=== PATIENT | male | born 1930 | race Caucasian/White ===

== ENCOUNTER 2016-08-17 02:15 | Inpatient (IN) ==
[2016-08-17 03:24] LABS: MANUAL DIFF NEEDED? NO
[2016-08-17 03:32] LABS: BASO% 0.1 % (0.0-0.8); EOS# 0.04 X1000 (0.0-0.7); EOS% 0.5 % (0.0-10.0); HEMATOCRIT 33.3 % (42.0-52.0); HEMOGLOBIN 10.4 g/dL (14.0-18.0); IMM GRAN# 0.02 X1000 (0.0-0.04); IMM GRAN% 0.3 % (0.0-0.5); LYMPH% 8.8 % (20.5-51.1); MCH 28.7 PG (27-31); MCHC 31.2 g/dL (33-37); MCV 91.7 FL (81-99); MONO# 0.46 X1000 (0.11-0.59); MONO% 5.8 % (1.7-9.3); MPV 8.9 FL (7.4-10.4); NEUT% 84.5 % (42.2-75.2); PLT 156 X1000 (130-400); RBC 3.63 XMIL (4.7-6.1)
[2016-08-17 03:46] LABS: ALBUMIN 3.5 g/dL (3.5-5.0); CALCIUM 9.1 mg/dL (8.8-10.2); POTASSIUM 4.1 mmol/L (3.5-5.1); TOTAL BILIRUBIN 0.38 mg/dL (0.20-1.00)
[2016-08-17] MEDS ORDERED: ZOFRAN IV ONE (03:56)
[2016-08-17] MEDS ORDERED: DILAUDID IV ONE (04:18)
[2016-08-17 04:22] LABS: INR 1.03; PROTIME 10.8 Seconds (9.2-11.7); PTT 24.9 Seconds (22.0-36.0)
[2016-08-17 04:32] LABS: URINE SOURCE CATH
[2016-08-17 04:36] LABS: BILIRUBIN URINE NEGATIVE (NEGATIVE); BLOOD URINE MODERATE (NEGATIVE); COLOR YELLOW; GLUCOSE URINE NEGATIVE (NEGATIVE); LEUKOCYTES URINE LARGE (NEGATIVE); NITRITE URINE NEGATIVE (NEGATIVE); PH URINE 5.5; PROTEIN URINE 100 mg/dL (NEGATIVE); SP GRAVITY URINE 1.017; TURBIDITY URINE HAZY (CLEAR); UROBILINOGEN URINE NORMAL (NORMAL)
[2016-08-17 04:38] LABS: URINE MICRO REVIEW NEEDED? YES
--- NOTE | 2016-08-17 04:47 | PROVIDER DOCUMENTATION ---
This chart was entered by Latisha Spivey Scribe, acting as scribe for Michi Lima MD. HPI-Musculoskeletal Pain/Inj - GENERAL Chief Complaint: Fall Stated Complaint: FALL RIGHT HIP PAIN Time Seen by Provider: 08/17/16 02:30 Source: patient - HX OF PRESENT ILLNESS-MUSKULOSKELTAL Nature of Presenting Problem: 86 Y/O M presents to ED with Extremity Injury. Pt states that he was sleeping on the edge of the bed, and "rolled off of the bed" severe pain, states there about 4 hours. Pt states he is unsure about how he ended up on the floor. RLE pain. Quality of Pain: reports: aching Severity in ED: moderate, severe Onset/Duration: 4-6 hours ago, this morning Timing: still present Any recent injury?: No Locality of Occurance: Home - FALL INJURY Location of Pain/Injury: reports: lower extremity Pain Radiation: reports: no radiation Reason for Fall: reports: other (rolled off bed) Symptoms prior to fall:: reports: none Loss of Consciousness: brief (seconds) Injury Associated Symptoms: reports: muscle aches, unable to bear weight, weakness, trouble walking. denies: diaphoresis, nausea - HIP/PELVIS PAIN/INJURY Hip Pain Location: reports: hip (R) Pain Radiation: reports: no radiation Context / Method of Injury: reports: fall - LOWER EXTREMITY PAIN/INJURY Context / Method of Injury: reports: fell Associated Symptoms: reports: muscle spasms, tingling in legs/feet - UPPER EXTREMITY PAIN/INJURY Context / Method of Injury: reports: fell Associated Symptoms: reports: muscle spasms Review of Systems - Adult - REVIEW OF SYSTEMS - ADULT Constitutional: denies: chills, fever Eyes: reports: no symptoms reported Ears, Nose, Mouth & Throat: reports: no symptoms reported Cardiovascular: reports: no symptoms reported Respiratory: reports: no symptoms reported Gastrointestinal: reports: no symptoms reported Genitourinary: reports: no symptoms reported Musculoskeletal: reports: joint pain, muscle aches. denies: bone pain, back pain Integumentary: reports: no symptoms reported Neurological: reports: no symptoms reported Psychiatric: reports: no symptoms reported Endocrine: reports: no symptoms reported Hematologic/Lymphatic: reports: no symptoms reported Allergic/Immunologic: reports: no symptoms reported All Other Systems: Reviewed and Negative Past History - Adult - PAST MEDICAL HISTORY-ADULT Review of Records: reports: Old Records Reviewed, Nursing Assessment Review, Medications Reviewed, Social history reviewed & non-contributory. Cardiovascular: reports: blood clots (DVT) Respiratory: reports: COPD, lung disease (blebs), other (pneumonthorax) Genitourinary: reports: prostate cancer (treated and cleared with radiation) - PRIOR SURGERIES/PROCEDURES Surgical/Procedure History: reports: recent surgery (cysto x 2 weeks ago), cholecystectomy, tonsillectomy, hernia repair (R inguinal hernia), other (lung bleb removed) - IMMUNIZATION STATUS Childhood Immunizations: See Nurse Assessment Flu Vaccine: See Nurse Assessment - FAMILY HISTORY Family History: reviewed, not pertinent Physical Exam-Injury Related - Physical Exam-Injury Related General Appearance: alert, no apparent distress Eyes: PERRL/EOMI, pink conjunctivae Head, Ears, Nose, Mouth & Throat: normocephalic/atraumatic, moist mucous membranes, normal ENT inspection, TMs normal, pharynx normal Neck: non-tender, full range of motion, supple, normal inspection Respiratory: chest non-tender, lungs clear, normal breath sounds Cardiovascular: normal peripheral pulses, regular rate, rhythm Abdominal Exam: non tender, soft Lymphatic: no adenopathy Back Exam: normal inspection Extremity: tenderness, other (shortening rotation in right leg) Integumentary: normal color, warm/dry Psych/Mental Status: normal mood/affect, normal thought content, normal thought process, oriented x 3 Progress - PLAN OF CARE/RESULTS Progress/Plan/Lab Results: Vital Signs - 8 hr 08/17/16 02:15 Temperature 98.2 F Pulse Rate 92 H Respiratory Rate 15 Blood Pressure 106/35 O2 Sat by Pulse Oximetry 82 L Laboratory Results - last 24 hr 08/17/16 08/17/16 03:15 03:15 WBC 7.94 RBC 3.63 L Hgb 10.4 L Hct 33.3 L MCV 91.7 MCH 28.7 MCHC 31.2 L RDW Std Deviation 16.6 H Plt Count 156 MPV 8.9 Immature Gran % (Auto) 0.3 Neut % (Auto) 84.5 H Lymph % (Auto) 8.8 L Hock[place] % (Auto) 5.8 Eos % (Auto) 0.5 Baso % (Auto) 0.1 Immature Gran # (Auto) 0.02 Neut # (Auto) 6.71 H Lymph # (Auto) 0.70 L [place] # (Auto) 0.46 Eos # (Auto) 0.04 Baso # (Auto) 0.01 Sodium 137 Potassium 4.1 Chloride 100 Carbon Dioxide 24 L Anion Gap 13 BUN 27 H Creatinine 1.5 H Estimated GFR/1.73 m2 44 BUN/Creatinine Ratio 18 Glucose 117 H Calculated Osmolality 280 Calcium 9.1 Total Bilirubin 0.38 AST 16 ALT 14 Alkaline Phosphatase 65 Total Protein 7.0 Albumin 3.5 Globulin 3.5 Albumin/Globulin Ratio 1.0 Orders Category Date Time Status [place] Cath Insertion ORDERED Care 08/17/16 03:55 Active CHEST-1 VIEW [RAD] Stat Exams 08/17/16 02:54 Taken XRAY PELVIS W/HIP 2-3VW RT [RAD] Stat Exams 08/17/16 02:33 Taken CBC WITH ELECTRONIC DIFF [HEME] Stat Lab 08/17/16 03:15 Completed COMPREHENSIVE METABOLIC PANEL [CHEM] Stat Lab 08/17/16 03:15 Completed PT [PROTIME WITH INR] [COAG] Stat Lab 08/17/16 02:50 Ordered PTT [COAG] Stat Lab 08/17/16 02:50 Ordered UA NIMS W/REFLEX CULT [URINALYSIS] Stat Lab 08/17/16 02:35 Uncollected Ondansetron [Zofran] Med 08/17/16 03:56 Discontinued 4 mg IV NOW ONE EKG [EKG] Stat Ther 08/17/16 02:18 Ordered Result Diagrams: 08/17/16 03:15 08/17/16 03:15 - EKG 1 Time of EKG reading by physician:: 02:14 EKG Read and Signed by:: Michi Lima EKG Interpretation (*Must complete 3 of following elements*): Abnormal Rate: 91 Rhythm: SR w/ frequent and consecutive premature ventricular complexes QRS: RBB (Incomplete) Comments: Abnormal ECG,Left anterior fascicular block, Septal Infract - XRAY 1 XRAY Study: Chest (badly rotated, but obvious fx of humeral neck.) Comparison with other Films: changes noted XRAY Interpretation: Chronic fibrotic lung disease 2 XRAY Study: Pelvis, Hip Impression: Abnormal, See EMR Report XRAY Interpretation: Femoral neck , impacted fx - CHANGE OF SHIFT REPORT (ED Provider) Items Pending: XRAY Results, Physician Consult/Arrival Departure - Departure Date of Disposition Decision: 08/17/16 Time of Disposition Decision: 04:16 DIAGNOSIS: Hip fracture Qualifiers: Encounter type: initial encounter Fracture type: closed Laterality: right Qualified Code(s): S72.001A - Fracture of unspecified part of neck of right femur, initial encounter for closed fracture Disposition: ADMITTED INPATIENT 09 Certified Medical Emergency: Emergent Condition: Fair - Critical Care Note This patient required my direct & personal management of CC.: No This chart was documented by the indicated scribe, (Latisha Spivey Scribe) and accurately reflects the services I performed and decisions made by me, Michi Lima MD, as attested by the provider's signature.
[2016-08-17 04:53] LABS: UR EPITHELIAL CELLS <10 /HPF (<10); URINE BACTERIA NEGATIVE /HPF; URINE CULTURE NEEDED? YES; URINE RBC <10 /HPF (<10); URINE WBC TNTC /HPF (<10)
[2016-08-17 05:30] LABS: URINE CASTS NONE SEEN; URINE CRYSTALS NONE SEEN; URINE SMALL ROUND CELLS NONE SEEN
--- NOTE | 2016-08-17 05:57 | EKG Report ---
Test Performed on : 08/17/2016 02:14:42 AM Test Reason : FALL/HIP FX Blood Pressure : / mmHG Vent. Rate : 091 BPM Atrial Rate : 091 BPM P-R Int : 164 ms QRS Dur : 114 ms QT Int : 390 ms P-R-T Axes : 050 -52 072 degrees QTc Int : 479 ms Sinus rhythm. with frequent and consecutive premature ventricular complexes. Incomplete right bundle branch block Left anterior fascicular block Septal infarct (cited on or before 23-OCT-2011) Abnormal ECG When compared with ECG of 19-JUL-2016 11:45, premature ventricular complexes. are now present Questionable change in initial forces of Anteroseptal leads Unconfirmed Result
[2016-08-17] MEDS ORDERED: NORCO-7.5 PO PRN (06:00)
[2016-08-17] MEDS ORDERED: VENTOLIN HFA INH PRN (06:00)
[2016-08-17] MEDS ORDERED: TYLENOL PO PRN (06:00)
[2016-08-17] MEDS ORDERED: ZOFRAN IV PRN (06:00)
--- NOTE | 2016-08-17 06:11 | HISTORY AND PHYSICAL ---
PRIMARY CARE PHYSICIAN: Nicolas Aldrich MD REASON FOR ADMISSION: Right hip pain and inability to get up. HISTORY: Mr. Hosea Nowak Jr. is an 86-year-old male with past medical history of interstitial lung disease, prostate cancer, bladder cancer, recent DVT, COPD, AAA, coronary artery disease and pernicious anemia. He comes in today complaining of right hip pain after he slipped on an oriental rug near his bed on his way back from the bathroom. He laid there for 4 hours until his got back from outside and noticed that he was lying on the floor. He denies any head trauma or loss of consciousness. The patient was not a very good historian because he was a little confused from the IV Dilaudid given to him a few hours ago. His states other antecedent complaints of urinary retention and chronic mild dyspnea. He had no other complaints. Patient denies any chest pain. No cough. No fever. No chills. REVIEW OF SYSTEMS: Limited because of patient's cognitive function. Twelve system review otherwise was attempted but not detailed due to the aforementioned problems. ALLERGIES: No known allergies. MEDICATIONS: He takes Lasix 20 mg daily, albuterol q.4h p.r.n., Metoprolol 25 mg b.i.d., Xarelto 15 mg b.i.d., olanzapine 2.5 mg daily, Rapaflo 8 mg daily, 1 cap at bedtime, trazodone 50 mg daily and Ambien 5 mg daily. SURGICAL HISTORY: Notable for right inguinal hernia repair. Tonsillectomy. Cholecystectomy. Lung reduction surgery. Bladder tumor resection. FAMILY HISTORY: Notable for prostate cancer. Gynecological cancers. No heart disease. No diabetes in first-degree relatives. SOCIAL HISTORY: He stopped smoking and drinking at the age of 40. He lives with his . No illicit drug use. LABORATORY WORK: White count 7000, hemoglobin and hematocrit 10 and 33, platelets 456,000. There are 84% neutrophils, BUN is 27, creatinine 1.5 which is unchanged from recent baseline in July. Glucose 117. PTT normal. Urinalysis shows too numerous to count white cells and moderate blood. No bacteria seen. Chest film increased vascular markings versus some superimposed chronic lung changes more in the right compared to the left. The hip x-ray shows a right impacted femoral foot neck fracture. EKG was done and as noted and reviewed by me. PHYSICAL EXAMINATION: VITAL SIGNS: Blood pressure 106/35, heart rate 92, respirations 16, temperature is 98.2 degrees and 82% on room air. He is a frail emaciated elderly man who is lying comfortably in bed not in acute distress. He is alert and oriented to person, place, but not to time. HEENT: Head is normocephalic and atraumatic with bitemporal wasting. Eyes are slightly sunken in. He is anicteric but mildly pale. ENT exam is grossly normal. NECK: Supple. No JVD or carotid bruit. No thyromegaly. CHEST: He has slightly barrel-shaped chest with decreased entry in both lung montejo but otherwise clear to auscultation. CARDIOVASCULAR: First and heart sounds heard. No gallops, murmurs or rubs. Rhythm is regular. ABDOMEN: Scaphoid soft. No tenderness. No masses or organomegaly noted. Bowel sounds are hypoactive. Rectal exam is deferred. EXTREMITIES: Patient has good pulses distally in all his extremities and good volume. No edema clubbing or peripheral cyanosis. NEUROLOGICAL: No gross focal deficits appreciated. SKIN: Intact. No breakdown or lesions. MUSCULAR: Slightly shorter right lower extremity with slight external rotation. No bruising over the hip joints. No crepitus felt. ASSESSMENT: 1. Right impacted hip fracture. 2. COPD. 3. Interstitial lung disease, quit radiation. 4. Bladder cancer. 5. Prostate cancer. 6. Recent DVT. 7. CAD. PLAN: Orthopedist, Dr. Taylor will be notified about patient. Treat patient symptomatically for his pain and any respiratory complaints accordingly. We will discontinue the Xarelto and surgery may need to be delayed for another 24-36 hours because of this. Also, if Xarelto is going to be continued at discharge, I will recommend patient's dose be decreased to 20 mg being that he has been on this since 07/19. It is probably likely that he will need to be on lifelong anticoagulation due to the fact that he has two ongoing cancers. Dr. Aldrich will be notified this morning by my colleagues to assume care. Urinalysis shows some degree of pyuria. Blood cultures need to be followed to determine if he truly has an infection. We will give a 1 time dose of Rocephin in the interim pending the culture reports. cc: MD Keenan Greenwood MD MTDD
--- NOTE | 2016-08-17 07:30 | Diag Imaging Result Doc PS360 ---
EXAM: XRAY PELVIS W/HIP 2-3VW RT - 08/17/2016 HISTORY: fall TECHNIQUE: Portable right hip and pelvis three views COMPARISON: None. FINDINGS: There is a fracture of the right femoral neck with foreshortening. There is no other fracture or dislocation identified. IMPRESSION: Fracture of right femoral neck. Electronically signed by Semaj Patel 08/17/2016 7:28 AM
--- NOTE | 2016-08-17 07:32 | Diag Imaging Result Doc PS360 ---
EXAM: CHEST-1 VIEW - 08/17/2016 HISTORY: fall r hip fx TECHNIQUE: Portable supine chest 0300 COMPARISON: 07/19/2016 FINDINGS: Heart size is normal. There are apparent emphysematous changes are most prominent at the right apex. There is bilateral pulmonary scarring, is prominent at the mid and lower lung on the right. There are no acute changes identified. IMPRESSION: Emphysematous changes and scarring. No acute changes. Electronically signed by Semaj Patel 08/17/2016 7:30 AM
[2016-08-17] MEDS: NS 1,000 ML IV SCH ×5 (08:05→23:42)
[2016-08-17] MEDS: MORPHINE IV PRN ×3 (08:05→23:42)
[2016-08-17] MEDS: ROCEPHIN 1 GM/NS 1 GM/50 ML IVPB IV SCH ×3 (08:05→10:54)
--- NOTE | 2016-08-17 08:43 | EKG Report ---
Test Performed on : 08/17/2016 08:22:52 AM Test Reason : Fast Heart Rate Blood Pressure : / mmHG Vent. Rate : 132 BPM Atrial Rate : 153 BPM P-R Int : 130 ms QRS Dur : 110 ms QT Int : 348 ms P-R-T Axes : -52 -63 072 degrees QTc Int : 515 ms Undetermined rhythm Left anterior fascicular block Septal infarct (cited on or before 23-OCT-2011) Abnormal ECG When compared with ECG of 17-AUG-2016 02:14, Current undetermined rhythm precludes rhythm comparison, needs review Questionable change in initial forces of Septal leads Confirmed by James CASTANEDA, Mac Chen ([id number]) on 08/17/2016 6:23:14 PM
[2016-08-17] MEDS ORDERED: ZYPREXA PO SCH ×2 (09:00→10:56)
[2016-08-17] MEDS ORDERED: DESYREL PO SCH ×2 (09:00→21:00)
--- NOTE | 2016-08-17 10:31 | EKG Report ---
Test Performed on : 08/17/2016 09:56:17 AM Test Reason : tachycardia Blood Pressure : / mmHG Vent. Rate : 137 BPM Atrial Rate : 137 BPM P-R Int : 136 ms QRS Dur : 116 ms QT Int : 326 ms P-R-T Axes : 042 -67 073 degrees QTc Int : 492 ms Sinus tachycardia. with occasional premature ventricular complexes. Incomplete right bundle branch block Left anterior fascicular block Cannot rule out Anteroseptal infarct (cited on or before 23-OCT-2011) Abnormal ECG When compared with ECG of 17-AUG-2016 08:22, (Unconfirmed) Previous ECG has undetermined rhythm, needs review Confirmed by James CASTANEDA, Mac Chen ([id number]) on 08/17/2016 6:23:28 PM
[2016-08-17] MEDS: LOPRESSOR PO SCH ×2 (10:52→20:41)
[2016-08-17] MEDS ORDERED: NS 250 ML IV ONE (10:59)
[2016-08-17] MEDS: RAPAFLO PO SCH (11:06)
[2016-08-17] MEDS: XOPENEX NEB INH SCH ×4 (11:41→22:52)
--- NOTE | 2016-08-17 12:00 | Diag Imaging Result Doc PS360 ---
EXAM: CHEST-PORTABLE - 08/17/2016 HISTORY: sob TECHNIQUE: Portable chest 1000 COMPARISON: Previous exam of same morning at 0300 FINDINGS: Heart size is normal. There is tortuosity of the thoracic aorta similar to the previous exam. There are COPD changes and scarring, is prominent on the right. There is increased prominence of infrahilar markings on the left. The possibility of infiltrative this location cannot be excluded. There is no substantial pleural effusion or pneumothorax identified. IMPRESSION: COPD changes and scarring. Increased prominence of left infrahilar markings. The possibility of infiltrate/pneumonia at this location cannot be excluded. Electronically signed by Semaj Patel 08/17/2016 11:57 AM
--- NOTE | 2016-08-17 13:31 | CONSULTATION ---
DATE OF CONSULTATION: 08/17/2016 IMPRESSIONS: 1. Sinus tachycardia with frequent premature supraventricular complexes and associated aberrancy. 2. Status post fall and right hip fracture. Surgical repair being considered. 3. Dementia. 4. Atherosclerotic coronary artery disease with previous coronary angiography in 2006 showing mild coronary atherosclerosis and normal left ventricular systolic function. The patient has continued without angina. 5. Peripheral vascular disease. 6. Recent deep vein thrombosis, treated with Xarelto. Last dose of Xarelto not clear. RECOMMENDATIONS: 1. Intravenous hydration. His tachycardia is possibly in part related to intravascular volume depletion, as patient has probably had limited oral intake in the last 24 hours, given his history. 2. Repeat echocardiography. 3. Determine last dose of Xarelto to guide timing of surgery. 4. Patient is acceptable risk from a cardiac standpoint for repair of hip fracture. However, timing of surgery will be dictated by last dose of Xarelto. HISTORY OF PRESENT ILLNESS: This 86-year-old white male with past history of atherosclerotic coronary artery disease, COPD, dementia, prostate cancer, bladder cancer, recent DVT, and hyperlipidemia was admitted from Dr. Aldrich's office after he was brought there complaining of right hip pain following a recent fall. He apparently had slipped on an oriental rug near his bed on the way back from the bathroom. He has little recall of recent events. He reportedly laid there for about 4 hours until his returned and found him lying on the floor. He is not aware of passing out. He can recall very little details of what has happened in the last few days. He denies any chest pain or shortness of breath. PAST MEDICAL HISTORY: 1. Atherosclerotic coronary artery disease with previous coronary angiography in 2006 showing mild coronary atherosclerosis and normal left ventricular systolic function. Patient continues without angina. 2. Hyperlipidemia. 3. Prostate cancer. 4. Chronic obstructive pulmonary disease. 5. Peripheral vascular disease, history of abdominal aortic aneurysm. 6. Dementia. PAST SURGICAL HISTORY: 1. Right inguinal hernia repair. 2. Tonsillectomy. 3. Cholecystectomy. 4. Lung reduction surgery. 5. Bladder tumor resection. ALLERGIES: He has no known drug allergies. MEDICATIONS PRIOR TO ADMISSION: As listed. SOCIAL HISTORY: He quit smoking and drinking at the age of 40. Lives with his . FAMILY HISTORY: Negative for premature coronary artery disease. REVIEW OF SYSTEMS: Pulmonary: Negative. Gastrointestinal: Negative. Constitutional: Negative. The remainder of the review of systems was negative, with 14 total systems reviewed. PHYSICAL EXAMINATION: General: This is an elderly white male in no distress. Vital Signs: As recorded are stable. Heart rate now, after intravenous fluids, 91 beats per minute with ECG monitor showing sinus rhythm with occasional to moderate ventricular ectopy. HEENT: Atraumatic, normocephalic. Pupils equal, round, reactive to light. Extraocular muscles appear intact. Mucous membranes are moist. Neck: Supple, without jugular venous distention. There are no carotid bruits. Chest: Clear to auscultation. Cardiac: Regular rate and rhythm, without appreciable murmur or gallop. Abdomen: Soft, nontender. Bowel sounds normal. Extremities: Without edema. Neurologic: Examination reveals him to be alert and responsive. His memory is quite poor. Speech is fluent. He moves all 4 extremities equally well. Skin: Warm and dry. Psychiatric: Was note to be appropriate. ELECTROCARDIOGRAM: ECG shows sinus tachycardia with frequent premature supraventricular complexes, an occasional premature ventricular complex, incomplete right bundle branch block, and left anterior fascicular block. cc: MD Nicolas Gunn MD
[2016-08-17 15:08] LABS: HEMATOCRIT 34.7 % (42.0-52.0); HEMOGLOBIN 10.8 g/dL (14.0-18.0); MCH 28.7 PG (27-31); MCHC 31.1 g/dL (33-37); MCV 92.3 FL (81-99); MPV 9.4 FL (7.4-10.4); RBC 3.76 XMIL (4.7-6.1)
[2016-08-17 15:27] LABS: ALBUMIN 3.4 g/dL (3.5-5.0); CALCIUM 8.9 mg/dL (8.8-10.2); POTASSIUM 4.4 mmol/L (3.5-5.1); TOTAL BILIRUBIN 0.36 mg/dL (0.20-1.00); TOTAL PROTEIN 6.7 g/dL (6.3-8.3)
--- NOTE | 2016-08-17 15:46 | CONSULTATION ---
DATE OF CONSULTATION: 08/17/2016 FAMILY PHYSICIAN: Dr. Nicolas Aldrich. HISTORY OF PRESENT ILLNESS: This is an 86-year-old white male with a past history of atherosclerotic coronary artery disease, COPD, dementia, prostate cancer, bladder cancer, recent DVT, and hyperlipidemia, who was admitted from Dr. Aldrich's office complaining of right hip pain after he slipped at his home and fell. Apparently, he did lay there for 4 hours or more until someone found him. He was admitted to the hospital and was complaining of significant hip pain. An x-ray does show a right impacted hip fracture. We have been asked to see him in relation to the hip fracture. OBJECTIVE: On physical examination of the right leg, there is no obvious bruising or edema. He has excellent pedal pulses, good color. Capillary refill is less than 2 seconds. He does have good sensation all the way down the leg. He complains of no pain anywhere else in the leg except for the right hip. No abrasions or lacerations. He is in external rotation. He can wiggle his toes and move the leg, but does elicit pain in his right hip. Imaging: Hip and pelvis xray shows fracture of the R femoral neck IMPRESSION: Right displaced femoral neck fracture. PLAN: Discussed treatment options with patient and family. His Xarelto has already been discontinued. His last known dose is unknown, related to some disorientation on his part. He did apparently have some supraventricular tachycardia during the day today, but Cardiology has cleared him for surgery 24 hours after we know he has been off the Xarelto. As of now, we will plan to do a right hemiarthroplasty tomorrow. The risks and benefits of surgery were explained to the patient, including the risk of anesthesia, , bleeding, infection, damage to tendons, ligaments , nerves, blood vessels, possibility of bleeding, blood clots, and other imponderables were discussed with the patient and his family, and all wish to proceed with operative management at this time. Dictated by SON Metzger for Michi Bang MD cc: SON Metzger MD Russell T. Barr, MD [facility]ITALAmos
--- NOTE | 2016-08-17 19:52 | PROGRESS NOTE ---
DATE: 08/17/2016 SUBJECTIVE: The patient was admitted early this morning with a right femoral neck fracture. The patient was provided adequate pain medications. I evaluated the patient at approximately 7:30 this morning. At that time, patient was noted to be significantly altered. He was exhibiting paranoid behavior. He would not allow nurses to assist in his care. Upon my evaluation, patient was noted to be tachypneic. His oxygen saturations were noted to be in the low 70s. His heart rate reached as high as 160. An EKG was performed which showed with undetermined rhythm. This appeared to be either a sinus tachycardia or possible supraventricular tachycardia with frequent ectopy. With oxygen supplementation, patient's overall condition showed improvement. I transferred patient to the CICU. A dose of metoprolol was provided. Dr. Ugarte with Cardiology was consulted. Throughout the day, patient's overall condition has improved considerably. The patient's mental status has returned to his baseline of mild dementia. Patient' s heart rate has decreased into the 80s. He has been provided supplemental oxygen therapy with adequate saturations. He denies fevers, chills, nausea, vomiting, or chest discomfort. He is prepared for surgical intervention in the a.m. OBJECTIVE: Vital signs: Temperature maximum 98.8 degrees, heart rate, 81 to 160. Respirations 16-24, blood pressure 95-116/45-78. General: Elderly. No acute distress. Cardiovascular: Regular rate and rhythm. No significant murmurs, rubs, or gallops. Pulmonary: Clear to auscultation bilaterally. Distant breath sounds. Abdomen: Soft, nontender, nondistended. Positive bowel sounds. Extremities: No significant clubbing, cyanosis, or edema. Dermatologic: Evaluation reveals no evidence of rash. LABORATORY DATA: White blood cell count 8.36, hemoglobin 10.8, hematocrit 34.7 , platelet count 159,000. Sodium 138, potassium 4.4, chloride 100, bicarb 24, BUN 28, creatinine 1.4. Glucose 106, calcium 8.9, total bilirubin 0.36, total protein 6.7, albumin 3.4, alkaline phosphatase 62, AST 18, ALT 15, CK total 80, troponin 0.025. IMAGING: Chest x-ray reveals COPD changes and scarring. Increased prominence of the left ventricle infrahilar markings. The possibility of infiltrates/pneumonia at this location cannot be excluded. ASSESSMENT AND PLAN: 1. Respiratory failure-upon my initial evaluation, patient was noted to be hypoxic with oxygen saturations in the low 70s. As above, patient was demonstrating significant systemic symptoms associated. With oxygen supplementation, continuing antibiotics and bronchodilators, patient's overall condition has improved. We will continue Rocephin and add azithromycin for the possibility of an infiltrative process as noted. We will remain aware that a pulmonary thromboembolism could present in this fashion, especially in the setting of trauma and recent deep venous thrombosis. Because of his stabilization of oxygenation, mild renal insufficiency, and inability to anticoagulate in setting of current fracture and acute need for surgery, I do not feel aggressive evaluation at this point is necessary. We will continue supplemental oxygen. We will plan to resume Xarelto once surgery is complete. 2. Alteration of mental status-I suspect this is secondary to underlying hypoxia and narcotic pain intervention. Over the course of the day, patient's condition has returned to baseline. We will follow this. 3. Tachycardia-as above, at this point, I am unsure whether this represented supraventricular tachycardia, regular a-fib/a-flutter, or sinus tachycardia. Regardless, with treatment of IV fluids, beta blockers, and supplemental oxygen, his condition has stabilized. I appreciate Dr. Ugarte's consultations. 4. Possible pneumonia-we will continue Rocephin and added azithromycin therapy. We will encourage incentive spirometry. We will continue Xopenex. 5. Urinary tract infection-we will continue patient on Rocephin therapy. Will follow cultures. 6. Right hip fracture-we will plan surgical intervention in the a.m. I appreciated Orthopedic consultation. 7. Recent deep venous thrombosis-as above, patient was on Xarelto upon admission. We will hold Xarelto for now and plan to resume this as soon as possible after surgical intervention. 8. History of bladder cancer-aware. 9. Disposition-at this point, patient continues to require half-way care in a hospital setting. The patient likely will require rehabilitation at discharge. cc: MD Nicolas Draper MD MTDD
[2016-08-17] MEDS: ZYPREXA PO SCH (20:45)
[2016-08-17] MEDS: SPIRIVA INH SCH (22:52)
[2016-08-18] MEDS: NS 1,000 ML IV SCH ×3 (02:02→16:48)
[2016-08-18] MEDS: XOPENEX NEB INH SCH ×6 (02:33→23:02)
[2016-08-18] MEDS: ROCEPHIN 1 GM/NS 1 GM/50 ML IVPB IV SCH (05:06)
[2016-08-18 05:20] LABS: MANUAL DIFF NEEDED? NO
[2016-08-18 05:28] LABS: BASO% 0.3 % (0.0-0.8); EOS# 0.03 X1000 (0.0-0.7); EOS% 0.5 % (0.0-10.0); HEMATOCRIT 32.6 % (42.0-52.0); HEMOGLOBIN 10.1 g/dL (14.0-18.0); LYMPH# 0.65 X1000 (1.2-3.4); LYMPH% 10.5 % (20.5-51.1); MCH 28.4 PG (27-31); MCV 91.6 FL (81-99); MONO# 0.52 X1000 (0.11-0.59); MONO% 8.4 % (1.7-9.3); MPV 9.4 FL (7.4-10.4); NEUT% 80.3 % (42.2-75.2); PLT 138 X1000 (130-400); RBC 3.56 XMIL (4.7-6.1)
[2016-08-18 05:45] LABS: CALCIUM 8.9 mg/dL (8.8-10.2); POTASSIUM 4.5 mmol/L (3.5-5.1)
[2016-08-18] MEDS: LOPRESSOR PO SCH ×3 (07:35→20:56)
[2016-08-18] MEDS ORDERED: NEOSPORIN G.U. IRRIGANT ONE (08:31)
[2016-08-18] MEDS ORDERED: LASIX PO SCH (09:00)
[2016-08-18] MEDS ORDERED: DIPRIVAN 1% ONE (10:42)
--- NOTE | 2016-08-18 10:51 | OPERATIVE NOTE ---
PROCEDURE DATE: 08/18/2016 PREOPERATIVE DIAGNOSIS: Right displaced femoral neck fracture. POSTOPERATIVE DIAGNOSIS: Right displaced femoral neck fracture. PROCEDURE: Hemiarthroplasty of the right hip with a Depuy Corail size 15 set cementless stem 28 + 1.5. Femoral head with a 28 x 55 bipolar head. SURGEON: Michi Bang MD. ASSISTANTS: SON Metzger. SECOND HELP DESK CONSULTANT: Ward Alvarez RN. ANESTHESIA: General. IV FLUIDS: 1000 mL lactated Ringer's. ESTIMATED BLOOD LOSS: 100 mL. COMPLICATIONS: None. INDICATION: The patient is an 86-year-old male with multiple medical problems, who is 2 days status post fall injuring his right hip. He developed immediate pain and discomfort and presented to the emergency room. X-rays revealed a displaced femoral neck fracture. After obtaining preoperative medical clearance, recommendation to proceed with hemiarthroplasty was offered. Risks and benefits of surgery were explained, including the risks of anesthesia , , bleeding, infection, failure to relieve pain, postop stiffness, nerve injury, blood clots , and other imponderables. All questions were answered. The patient and family wished to proceed with surgery. DETAILS OF OPERATION: The patient was taken to the operating room and placed supine on the operating table. Once adequate anesthesia was obtained, the patient was placed in a left lateral decubitus position on a low bag with an axillary roll. The right hip was subsequently prepped and draped in usual sterile fashion. A standard lateral incision made with a skin knife. Hemostasis was obtained with electrocautery. The fascia homa and gluteus che were incised in line with the incision. A Charnley retractor was then placed. The piriformis tendon was then identified and a stay suture was placed. Piriformis tendon along with the short external rotators were then elevated off of the insertion site and retracted posteriorly. A T- shaped capsulotomy was then performed. Stay suture was placed in the capsule. The humeral head was then removed with a corkscrew. The fracture debris was removed with a rongeur. A box cutting guide was then placed in the intramedullary canal of the femur. This is followed by a starting deckhand clam dredge. Sequential broaching was then performed with a size 15 and had a good fit. Calcar planing was conducted in the proximal femur. A trial head and neck size was then placed in a 28 + 1.5 femoral head with a 28 x 55 bipolar head with a high offset. Had excellent stability. The hip was dislocated and the trial stems were removed. Copious irrigation was then performed with antibiotic pulsatile lavage. A size 15 high offset Corail cementless femoral stem was impacted into position and had good fit. The 28+ 1.5 femoral head with a 28 x 55 bipolar head was impacted on the stem. The hip was then reduced, carried through range of motion and had excellent stability and good range of motion. The wound was copiously at antibiotic pulsatile lavage. Number 1 Vicryl was used to repair the posterior capsule as well as piriformis tendon. Irrigation was conducted once again. A Charnley retractor was then removed. Number 1 Vicryl was then used to repair the fascia homa and gluteus che in a running fashion. 2-0 Vicryl was then placed followed by skin jama. Adaptic, sterile 4x4s, ABD pad, and tape applied to the right hip followed by abduction pillow. Patient tolerated the procedure well and was transferred to the recovery room in stable condition. cc: MD Nicolas Cannon MD MTDD
[2016-08-18] MEDS ORDERED: ATROPINE ONE (11:00)
[2016-08-18] MEDS ORDERED: ZOFRAN ONE (11:00)
[2016-08-18] MEDS ORDERED: XYLOCAINE-MPF 2% ONE (11:01)
[2016-08-18] MEDS ORDERED: NS 250 ML ONE (11:01)
[2016-08-18] MEDS ORDERED: LR 1,000 ML ONE (11:01)
[2016-08-18] MEDS ORDERED: NEO-SYNEPHRINE ONE (11:01)
[2016-08-18] MEDS ORDERED: MORPHINE IV PRN (11:18)
[2016-08-18] MEDS ORDERED: MILK OF MAGNESIA PO PRN (11:18)
[2016-08-18] MEDS: MORPHINE ONE ×2 (11:18→13:08)
[2016-08-18] MEDS ORDERED: ZOFRAN IV PRN (11:18)
--- NOTE | 2016-08-18 12:10 | Diag Imaging Result Doc PS360 ---
EXAM: HIP 1 VIEW RIGHT HISTORY: post op bipolar hip TECHNIQUE: Portable AP only COMMENT: There is a bipolar hip prosthesis. There appears to be appropriate alignment. IMPRESSION: Postsurgical changes. Electronically signed by Rick Mitchell 08/18/2016 12:07 PM
[2016-08-18] MEDS: RAPAFLO PO SCH (13:06)
[2016-08-18] MEDS: ZITHROMAX 500 MG/NS 500 MG/250 ML IVPB IV SCH (13:06)
[2016-08-18] MEDS: TYLENOL PO SCH ×2 (13:10→20:55)
--- NOTE | 2016-08-18 13:46 | PROGRESS NOTE ---
DATE: 08/18/2016 SUBJECTIVE: Patient underwent repair of hip fracture today. He has no chest symptoms postoperatively. Reportedly his confusion seemed to improve yesterday evening but he is now once again having difficulty with memory postoperatively. This apparently is not unusual for him. OBJECTIVE: Vital Signs: Blood pressure 97/50, heart rate 89 and regular. ECG monitor showing sinus rhythm. There is no significant jugular venous distention. Chest: Clear to auscultation. Cardiac Exam: Reveals a regular rate and rhythm without appreciable murmur or gallop. Echocardiogram report is pending. IMPRESSION: 1. Recent sinus tachycardia on presentation probably related to intravenous volume depletion and pain. This seems to have improved with volume replacement. 2. Atherosclerotic coronary disease with previous coronary angiography in 2006 showing mild coronary atherosclerosis. Normal left ventricular systolic function. Patient continues without angina. 3. Dementia. 4. Status post fall and right hip fracture. Patient is status post surgical repair today. 5. Recent deep venous thrombosis treated with Xarelto. 6. Peripheral vascular disease. RECOMMENDATIONS: 1. Continue gentle intravenous hydration. 2. Followup echocardiography. 3. Resume anticoagulation when okay from an orthopedic surgery standpoint. cc: MD Nicolas Gunn MD
[2016-08-18] MEDS ORDERED: NS 500 ML IV ONE (14:30)
--- NOTE | 2016-08-18 14:56 | PROGRESS NOTE ---
DATE: 08/18/2016 SUBJECTIVE: Initially came to round early this morning, but patient had been taken for surgical intervention. The patient tolerated his right hip surgical intervention by Dr. Bang without complication. This afternoon, patient is doing reasonably well. His daughters are at bedside. Postoperatively, patient has had some modest hypotension, likely secondary to IV morphine. In addition, he has had some increasing confusion. There has been no evidence of fevers, chills, nausea, vomiting, or chest discomfort. He transiently required increasing oxygen to maintain adequate saturation. OBJECTIVE: Vital signs: Temperature maximum is 98.4 degrees, heart rate 84 to 106, respirations 21 to 25, blood pressure 97-114/50-64. General: Elderly, no acute distress. Cardiovascular: Regular rate and rhythm. No significant murmurs, rubs, or gallops. Pulmonary: Clear to auscultation anteriorly. Abdomen: Soft, nontender, nondistended. Positive bowel sounds. Extremities: Moves left lower extremity well. Right lower extremity movement is limited. No significant clubbing, cyanosis or edema. Dermatologic: Evaluation reveals no evidence of rash. LABORATORY DATA: White blood cell count 6.20, hemoglobin 10.1, hematocrit 32.6 , platelet count 138,000. Sodium 138, potassium 4.5, chloride 104, bicarb 21, BUN 31, creatinine 1.5, glucose 108. ASSESSMENT AND PLAN: 1. Respiratory failure-upon my initial evaluation yesterday, patient was noted to be profoundly hypoxic. With oxygen therapy and treatment for possible underlying pneumonia , patient's overall condition has improved. We will treat pneumonia as described below. 2. Possible infiltrate/pneumonia in the left infrahilar region-this was noted per chest x-ray. Patient currently is being treated with Xopenex, oxygen supplementation, Rocephin, and azithromycin. We will continue to encourage incentive spirometry and aspiration precautions. 3. Alteration of mental status-the patient was diagnosed yesterday, but achieved improvement with oxygen supplementation. Unfortunately, postoperatively, patient has resumed a confused state. This likely is secondary to narcotic pain medication intervention. We will follow this for now. 4. Tachycardia-yesterday, patient's electrocardiogram suggested either a supraventricular tachycardia, regular atrial fibrillation versus atrial flutter, or a sinus tachycardia with frequent ectopy. With treatment of his underlying pulmonary compromise, his condition has stabilized. We will continue beta blockers, supplemental oxygen, IV fluids, and monitoring patient on telemetry. Echocardiogram is pending. We will follow with Dr. Ugarte. 5. Urinary tract infection-we will continue patient on Rocephin therapy. 6. Right hip fracture-as above, patient is status post surgical intervention by Dr. Bang. We will defer physical therapy recommendations to his discretion. 7. Recent deep venous thrombosis-patient was on Xarelto upon admission. His Xarelto has been held for surgery. We will defer resuming anticoagulation to Dr. Bang. Will encourage starting as soon as possible. 8. History of bladder cancer-we will remain aware. 9. Postoperative hypotension-we will provide a 1 time normal saline bolus of 500 mL. We will continue IV fluids as scheduled. We will follow this. 10. Disposition-at this point, the patient continues to require [facility] care in a hospital setting. We will plan discharge home once appropriate. cc: MD Nicolas Draper MD MTDD
[2016-08-18] MEDS: OXY IR PO PRN (16:48)
[2016-08-18] MEDS: COLACE PO SCH (20:55)
[2016-08-18] MEDS: ZYPREXA PO SCH (20:55)
[2016-08-18] MEDS: AMBIEN PO PRN (22:36)
[2016-08-19] MEDS: OXY IR PO PRN ×4 (02:35→17:52)
[2016-08-19] MEDS: TYLENOL PO SCH ×3 (02:35→21:15)
[2016-08-19] MEDS: NS 1,000 ML IV SCH (02:38)
[2016-08-19] MEDS: XOPENEX NEB INH SCH ×6 (03:05→23:14)
[2016-08-19 05:08] LABS: MANUAL DIFF NEEDED? NO
[2016-08-19] MEDS: XARELTO PO SCH (05:39)
[2016-08-19] MEDS: ROCEPHIN 1 GM/NS 1 GM/50 ML IVPB IV SCH (05:39)
[2016-08-19 05:42] LABS: BASO% 0.2 % (0.0-0.8); EOS# 0.05 X1000 (0.0-0.7); HEMATOCRIT 24.2 % (42.0-52.0); HEMOGLOBIN 7.3 g/dL (14.0-18.0); LYMPH# 0.69 X1000 (1.2-3.4); LYMPH% 13.6 % (20.5-51.1); MCH 28.1 PG (27-31); MCHC 30.2 g/dL (33-37); MCV 93.1 FL (81-99); MONO# 0.54 X1000 (0.11-0.59); MONO% 10.7 % (1.7-9.3); MPV 9.5 FL (7.4-10.4); NEUT% 74.5 % (42.2-75.2); PLT 111 X1000 (130-400)
[2016-08-19 05:50] LABS: ALBUMIN 2.5 g/dL (3.5-5.0); CALCIUM 7.9 mg/dL (8.8-10.2); POTASSIUM 4.2 mmol/L (3.5-5.1); TOTAL BILIRUBIN 0.25 mg/dL (0.20-1.00); TOTAL PROTEIN 5.1 g/dL (6.3-8.3)
--- NOTE | 2016-08-19 07:42 | PROGRESS NOTE ---
DATE: 08/19/2016 SUBJECTIVE: The patient is a pleasant 86-year-old male who is one day status post right bipolar hemiarthroplasty. The patient is currently resting comfortably this morning and has no significant complaints. OBJECTIVE: On physical examination of the patient's right lower extremity, his dressing is intact. His calf is soft. He has active dorsiflexion and plantar flexion. His hemoglobin is 7.3, hematocrit is 24.2. IMPRESSION: 1. Postoperative day #1 status post right bipolar hemiarthroplasty. 2. Acute blood loss anemia. PLAN: At this point, Physical Therapy has been consulted. The patient may be weightbearing as tolerated right lower extremity. We will mobilize once medically stable. cc: MD Nicolas Cannon MD
[2016-08-19] MEDS: ZITHROMAX 500 MG/NS 500 MG/250 ML IVPB IV SCH (08:31)
[2016-08-19] MEDS: RAPAFLO PO SCH (08:32)
[2016-08-19] MEDS: FERROUS SULFATE PO SCH (08:35)
[2016-08-19] MEDS: LOPRESSOR PO SCH ×2 (09:07→21:07)
[2016-08-19] MEDS: NS NEB INH SCH ×2 (11:52→15:40)
[2016-08-19 14:50] LABS: HEMATOCRIT 30.4 % (42.0-52.0); HEMOGLOBIN 9.3 g/dL (14.0-18.0)
--- NOTE | 2016-08-19 19:35 | PROGRESS NOTE ---
DATE: 08/19/2016 SUBJECTIVE: Patient continues without chest discomfort or dyspnea. He is currently on nasal cannula oxygen. OBJECTIVE: Vital Signs: Blood pressure 102/56, heart rate 80 and regular. Oxygen saturation 100% on nasal cannula oxygen at 2 L. Neck: Jugular venous pressure appears to be normal. Chest: Clear to auscultation. Cardiac Exam: Reveals a regular rate and rhythm without appreciable murmur or gallop. No evidence of edema. IMPRESSIONS: 1. Recent sinus tachycardia on presentation, probably related to intravascular volume depletion and pain, as well as mild anemia. This seems to have improved. 2. Atherosclerotic coronary disease with history of previous coronary angiography in 2006 showing mild coronary atherosclerosis. Patient demonstrated normal left ventricular systolic function at that time. He continues without angina. 3. Some tendency for dementia. He is presently quite lucid and it appears that his cognitive function is significantly affected by narcotic analgesics. 4. Status post fall and right hip fracture. Patient is status post surgical repair. 5. History of deep vein thrombosis. Treated with Xarelto. 6. Peripheral vascular disease. RECOMMENDATIONS: 1. Continue supportive care. 2. Resume anticoagulation when okay from an orthopedic surgery standpoint. 3. Given apparent clinical stability from a cardiac standpoint, we will see further on an as needed basis. cc: MD Nicolas Gunn MD
[2016-08-19] MEDS: SPIRIVA INH SCH (20:53)
[2016-08-19] MEDS: COLACE PO SCH (21:15)
[2016-08-19] MEDS: ZYPREXA PO SCH (21:16)
[2016-08-20] MEDS: TYLENOL PO SCH ×3 (03:35→19:08)
[2016-08-20] MEDS: HALDOL IV PRN (03:35)
[2016-08-20] MEDS: XOPENEX NEB INH SCH ×2 (04:12→07:28)
[2016-08-20] MEDS: XARELTO PO SCH (06:24)
[2016-08-20] MEDS: FERROUS SULFATE PO SCH (08:51)
[2016-08-20] MEDS: RAPAFLO PO SCH (08:51)
[2016-08-20] MEDS: LOPRESSOR PO SCH ×2 (08:51→21:33)
[2016-08-20] MEDS: OXY IR PO PRN (18:12)
[2016-08-20] MEDS: ALBUTEROL NEB INH PRN (19:41)
[2016-08-20] MEDS: ZYPREXA PO SCH (21:30)
[2016-08-20] MEDS: COLACE PO SCH (21:30)
[2016-08-20] MEDS: SPIRIVA INH SCH (21:38)
[2016-08-20] MEDS: AMBIEN PO PRN (21:44)
[2016-08-21] MEDS: HALDOL IV PRN ×2 (00:24→14:23)
[2016-08-21] MEDS: TYLENOL PO SCH ×3 (03:06→21:33)
[2016-08-21] MEDS: ALBUTEROL NEB INH PRN ×3 (03:30→19:24)
[2016-08-21] MEDS: XARELTO PO SCH (06:12)
[2016-08-21] MEDS: FERROUS SULFATE PO SCH (09:12)
[2016-08-21] MEDS: LOPRESSOR PO SCH ×2 (09:12→21:33)
[2016-08-21] MEDS: RAPAFLO PO SCH (09:13)
[2016-08-21] MEDS: OXY IR PO PRN ×2 (09:14→17:40)
--- NOTE | 2016-08-21 10:09 | PROGRESS NOTE ---
DATE: 08/20/2016 SUBJECTIVE: Patient is a pleasant 86-year-old male who is 2 days status post bipolar hemiarthroplasty of the right hip. He is currently resting comfortably. OBJECTIVE: On physical exam, the patient's dressing is intact. Calf is soft. He was able to actually to actively dorsiflex and plantarflex. He is grossly intact. IMPRESSION: Status post right total bipolar hemiarthroplasty. PLAN: At this point, we will get him to mobilize with physical therapy if medically cleared. [employer] have been consulted for inpatient rehabilitation. cc: MD Nicolas Cannon MD MTDD
[2016-08-21] MEDS: SPIRIVA INH SCH ×3 (19:35→20:19)
[2016-08-21] MEDS: COLACE PO SCH (21:33)
[2016-08-21] MEDS: AMBIEN PO PRN (21:34)
[2016-08-21] MEDS: ZYPREXA PO SCH (21:34)
[2016-08-22] MEDS: OXY IR PO PRN ×2 (04:15→14:26)
[2016-08-22] MEDS: TYLENOL PO SCH ×3 (04:15→21:39)
[2016-08-22] MEDS: XARELTO PO SCH (07:01)
[2016-08-22] MEDS: ALBUTEROL NEB INH PRN ×3 (07:51→23:55)
[2016-08-22] MEDS ORDERED: CALMOSEPTINE OINTMENT TOP PRN (10:20)
--- NOTE | 2016-08-22 10:25 | PROGRESS NOTE ---
DATE: 08/22/2016 SUBJECTIVE: I am familiar with the patient's hospital course up until 08/18/2016. Since that time, Dr. Aldrich has assumed care. In summary, since that time, patient has demonstrated a slow recovery from a right hip fracture. He was treated for possible urinary tract infection and possible pneumonia with resolution. Ultimately, urine culture returned negative. He is slowly improving from an energy standpoint. He is working with physical therapy. He continues to require supplemental oxygenation. With supplemental oxygen, oxygen saturations have remained stable. Over the course of the last 24 hours, he has exhibited some increasing confusion. The patient's family states this is not largely outside of expected as he has experienced confusion during previous hospitalizations. He denies fevers, chills, nausea, vomiting, or chest discomfort. His p.o. intake is marginal. OBJECTIVE: Vital Signs: Temperature maximum 98, heart rate 69-82, respirations 14-18, blood pressure 97-125/55-70. General: Chronically ill appearing, no acute distress. Cardiovascular: Regular rate and rhythm. No significant murmurs, rubs, or gallops. Pulmonary: Clear to auscultation bilaterally. Abdomen: Soft, nontender, nondistended. Positive bowel sounds. Extremities: Moves all extremities well. No significant clubbing, cyanosis, or edema. Dermatologic: Evaluation reveals no evidence of rash. Laboratory Data: None. ASSESSMENT AND PLAN: 1. Alteration of mental status-the question is raised whether this is situational or pathologic. We will check labs including a CBC and a CMP in the morning. We will check a urinalysis. As the patient's vital signs are stable, we will continue supportive care for now. 2. Respiratory failure with possible infiltrate/pneumonia-the patient has achieved resolution with the exception of hypoxia. He no longer required antibiotic intervention. He has no evidence of significant compromise. For now, we will continue oxygen per protocol. 3. Possible urinary tract infection-patient has completed Rocephin therapy. As above, urine culture returned negative. Because of alteration in mental status, we will recheck a urinalysis. 4. Right hip fracture-patient is status post surgical intervention by Dr. Bang. We will continue physical therapy. Patient will require rehabilitation at discharge. 5. Recent history of a deep venous thrombosis-the patient is being treated with full dose Xarelto. We will follow. 6. History of bladder cancer-we will remain aware. 7. Disposition-at this point, patient continues to require [facility] care in a hospital setting. We will plan discharge home once appropriate. cc: MD Nicolas Draper MD
[2016-08-22] MEDS: FERROUS SULFATE PO SCH (10:36)
[2016-08-22] MEDS: RAPAFLO PO SCH (10:36)
[2016-08-22] MEDS: LOPRESSOR PO SCH ×2 (10:36→21:45)
[2016-08-22] MEDS ORDERED: NS 1,000 ML ONE (10:38)
[2016-08-22 11:13] LABS: URINE MICRO REVIEW NEEDED? NO; URINE SOURCE CLEAN CATCH
[2016-08-22 11:19] LABS: UR EPITHELIAL CELLS <10 /HPF (<10); URINE BACTERIA NEGATIVE /HPF; URINE RBC TNTC /HPF (<10); URINE WBC TNTC /HPF (<10)
[2016-08-22 11:26] LABS: BILIRUBIN URINE NEGATIVE (NEGATIVE); BLOOD URINE LARGE (NEGATIVE); COLOR ORANGE; GLUCOSE URINE NEGATIVE (NEGATIVE); LEUKOCYTES URINE MODERATE (NEGATIVE); NITRITE URINE NEGATIVE (NEGATIVE); PH URINE 5.5; PROTEIN URINE 30 mg/dL (NEGATIVE); SP GRAVITY URINE 1.016; TURBIDITY URINE HAZY (CLEAR); URINE CULTURE NEEDED? YES; UROBILINOGEN URINE NORMAL (NORMAL)
[2016-08-22] MEDS: HALDOL IV PRN (16:20)
[2016-08-22] MEDS: COLACE PO SCH (21:40)
[2016-08-22] MEDS: ZYPREXA PO SCH (21:40)
[2016-08-22] MEDS: AMBIEN PO PRN (21:40)
[2016-08-22] MEDS ORDERED: LEVAQUIN PO ONE (22:28)
[2016-08-22] MEDS: SPIRIVA INH SCH (23:00)
[2016-08-23] MEDS: TYLENOL PO SCH ×3 (02:41→20:54)
[2016-08-23] MEDS: OXY IR PO PRN ×2 (02:42→15:53)
[2016-08-23] MEDS ORDERED: LEVAQUIN PO ONE (02:45)
[2016-08-23 05:39] LABS: MANUAL DIFF NEEDED? NO
[2016-08-23 05:43] LABS: BASO% 0.5 % (0.0-0.8); EOS# 0.25 X1000 (0.0-0.7); HEMATOCRIT 31.2 % (42.0-52.0); HEMOGLOBIN 9.7 g/dL (14.0-18.0); LYMPH# 0.67 X1000 (1.2-3.4); LYMPH% 16.1 % (20.5-51.1); MCH 28.8 PG (27-31); MCHC 31.1 g/dL (33-37); MCV 92.6 FL (81-99); MONO% 9.6 % (1.7-9.3); MPV 9.8 FL (7.4-10.4); NEUT% 67.8 % (42.2-75.2); PLT 155 X1000 (130-400); RBC 3.37 XMIL (4.7-6.1)
--- NOTE | 2016-08-23 05:57 | EKG Report ---
Test Performed on : 08/22/2016 06:12:51 AM Test Reason : CP Blood Pressure : / mmHG Vent. Rate : 088 BPM Atrial Rate : 088 BPM P-R Int : 156 ms QRS Dur : 120 ms QT Int : 368 ms P-R-T Axes : 063 -65 063 degrees QTc Int : 445 ms Sinus rhythm. with frequent premature ventricular complexes. in a pattern of bigeminy. Right bundle branch block Left anterior fascicular block Bifascicular block Cannot rule out Anteroseptal infarct (cited on or before 23-OCT-2011) Abnormal ECG When compared with ECG of 17-AUG-2016 09:56, Vent. rate has decreased BY 49 BPM Questionable change in initial forces of Septal leads Confirmed by James CASTANEDA, Mac Chen ([id number]) on 08/24/2016 8:34:06 AM
[2016-08-23] MEDS: XARELTO PO SCH (06:25)
[2016-08-23 06:32] LABS: ALBUMIN 2.7 g/dL (3.5-5.0); CALCIUM 8.6 mg/dL (8.8-10.2); POTASSIUM 4.2 mmol/L (3.5-5.1); TOTAL BILIRUBIN 0.52 mg/dL (0.20-1.00); TOTAL PROTEIN 5.6 g/dL (6.3-8.3)
[2016-08-23] MEDS: LOPRESSOR PO SCH ×2 (09:02→20:54)
[2016-08-23] MEDS: FERROUS SULFATE PO SCH (09:02)
[2016-08-23] MEDS: RAPAFLO PO SCH (09:02)
[2016-08-23] MEDS ORDERED: LEVAQUIN PO SCH (18:00)
[2016-08-23] MEDS: ZYPREXA PO SCH (20:54)
[2016-08-23] MEDS: COLACE PO SCH (20:54)
[2016-08-23] MEDS: SPIRIVA INH SCH (22:30)
[2016-08-23] MEDS: ALBUTEROL NEB INH PRN (22:30)
[2016-08-24] MEDS: OXY IR PO PRN ×3 (00:17→21:32)
[2016-08-24] MEDS: AMBIEN PO PRN (00:54)
[2016-08-24] MEDS: TYLENOL PO SCH ×3 (04:00→21:33)
[2016-08-24] MEDS: XARELTO PO SCH (06:32)
[2016-08-24] MEDS: FERROUS SULFATE PO SCH (08:37)
[2016-08-24] MEDS: RAPAFLO PO SCH (08:37)
[2016-08-24] MEDS: HALDOL IM PRN ×2 (14:01→21:46)
[2016-08-24] MEDS: ALBUTEROL NEB INH PRN (19:45)
[2016-08-24] MEDS: SPIRIVA INH SCH (19:45)
[2016-08-24] MEDS ORDERED: ROZEREM PO SCH (21:00)
[2016-08-24] MEDS: ZYPREXA PO SCH (21:33)
--- NOTE | 2016-08-25 05:35 | EKG Report ---
Test Performed on : 08/24/2016 9:27:14 PM Test Reason : CP Blood Pressure : / mmHG Vent. Rate : 104 BPM Atrial Rate : 104 BPM P-R Int : 134 ms QRS Dur : 110 ms QT Int : 358 ms P-R-T Axes : 065 -61 073 degrees QTc Int : 470 ms Sinus tachycardia. with frequent premature ventricular complexes. RSR' or QR pattern in V1 suggests right ventricular conduction delay Left anterior fascicular block Cannot rule out Anteroseptal infarct (cited on or before 23-OCT-2011) Abnormal ECG When compared with ECG of 22-AUG-2016 06:12, Questionable change in initial forces of Septal leads Confirmed by James CASTANEDA, Mac Chen ([id number]) on 08/27/2016 9:10:34 AM
[2016-08-25] MEDS: OXY IR PO PRN ×3 (06:53→13:08)
[2016-08-25] MEDS: XARELTO PO SCH (06:53)
[2016-08-25] MEDS: ALBUTEROL NEB INH PRN (07:40)
[2016-08-25] MEDS: TYLENOL PO SCH (08:06)
--- NOTE | 2016-08-25 08:35 | DISCHARGE SUMMARY ---
ADMISSION DATE: 08/17/2016 DISCHARGE DATE: 08/25/2016 FINAL DIAGNOSES: 1. Acute right femoral neck fracture, status post bipolar repair 08/18/2016. 2. Severe emphysema and chronic obstructive pulmonary disease, status post lung reduction surgery. 3. Bladder cancer, status post palliative resection several months ago. 4. Deep venous thrombosis, on long-term anticoagulation with Xarelto. 5. Dementia with intermittent delirium and behavioral abnormalities. PRESENT ILLNESS: Mr. Nowak is an 86-year-old gentleman who was normally quite ambulatory and functional, who was returning from the bathroom and tripped on an oriental rock in his bedroom, and fell to the floor. His was apparently out of the house and did not returned for 4 hours, and found him on the floor. He was brought to the emergency room by ambulance. He was found on x- ray to have a subcapital femoral neck fracture. Orthopedic consultation recommended admission and bipolar repair. PHYSICAL EXAMINATION: Vital Signs: Revealed unremarkable vital signs except for slightly reduced O2 saturation. General: He appears thin, almost emaciated, elderly gentleman. Oriented to person and place but not to time. HEENT Examination: There is no visible trauma. There is mild temporal muscle wasting noted. Neck: Supple without JVD or bruits. Chest Examination: There is increased AP diameter with clear but reduced lungs sounds bilaterally. Cardiac Examination: Heart sounds were distant without murmurs, rubs, or gallops. Abdomen: Scaphoid, soft, and nontender. Active bowel sounds. Extremities: There was slight shortening and external rotation of the right leg. HOSPITAL COURSE: He was admitted to CICU apparently with concern over some sinus tachycardia. He was taken to the operating room the following morning and underwent bipolar repair by Dr. Michi Bang. This was uneventful. He was started on standard physical therapy protocol but progressed somewhat slowly due to his fluctuating mental status with occasional periods of confusion and agitation and argumentativeness but no combativeness. His nightly Zyprexa was reinstated and he was also given Rozerem at bedtime for sleep. At the time of discharge, he was walking short distances with a walker but will require further subacute rehab to return home. His is younger and able to assist in his care but has her own mental health problems and he needs to be fairly independent to return home. His pulmonary status was generally excellent with only occasional rare episodes of shortness of breath. He did periodically have an oxygen desaturation, typically while exercising with physical therapy. For some reason, O2 saturation monitors often do not fiber picker an accurate reading but with getting up and taking deep breaths and coughing, his O2 saturation usually returned to normal without needing supplemental oxygen except during physical therapy and other exertion. I feel he will do better if oxygen can be limited to exercise periods as the cannulae are somewhat confusing and tend to aggravate his dementia and delirium if used 04/10. He is discharged to [facility] in improved condition. DISCHARGE MEDICATIONS: Ferrous sulfate 1 daily with breakfast, Calmoseptine ointment topically to the groin as needed for rash, OxyIR 5 mg every 3 hours as needed for postoperative hip pain, Xarelto 20 mg once daily, acetaminophen 1000 mg every 8 hours for 7 days and then 1000 mg q.8 hours p.r.n. only for pain, milk of magnesia 30 mg daily as needed for constipation, Rozerem 8 mg at bedtime for sleep and delirium management, Rapaflo 8 mg daily after supper for BPH, Spiriva 1 capsule inhaled at bedtime daily for COPD, albuterol HFA metered-dose inhaler 2 puffs q.4 hours p.r.n. for shortness of breath or wheezing, olanzapine 2.5 mg at bedtime. I will continue to follow him after discharge. cc: Nicolas Aldrich MD
[2016-08-25] MEDS: FERROUS SULFATE PO SCH (10:09)
[2016-08-25] MEDS: RAPAFLO PO SCH (10:09)
[2016-08-25 13:44] VITALS: BP 121/45
== END 2016-08-25 13:57 ==
LOC: ED 02:15 → 4N 05:24 → SUATTDRO 05:24 → 3S 09:41 → 4N 08-19 09:47
PROVIDERS: ADMIT Internal Medicine; ATTEND Internal Medicine